=== PATIENT | male | born 1995 | race African-American/Black ===

== ENCOUNTER 2021-11-23 23:13 | Emergency (ER) | payer MEDICAID ==
[~2021-11-23] VITALS: Ht 175.3 cm; Wt 59.0 kg
[2021-11-24 01:42] VITALS: BP 122/71
[2021-11-24] MEDS ORDERED: KETOROLAC 30MG/ML VIAL IM ONE (04:15)
[2021-11-24] MEDS ORDERED: KETOROLAC 30MG/ML VIAL IM NR (04:30)
[2021-11-24 04:57] LABS: CLARITY URINE CLOUDY (CLEAR); COLOR URINE YELLOW (YELLOW); PH URINE 5.5 (4.5-8.0); SPECIFIC GRAVITY URINE 1.019 (1.005-1.030)
[2021-11-24 04:58] LABS: KETONES URINE NEGATIVE (NEGATIVE); PROTEIN URINE 1+ (NEGATIVE)
[2021-11-24 04:59] LABS: LEUKOCYTE ESTERASE URINE 3+ (NEGATIVE); NITRITE URINE POSITIVE (NEGATIVE); OCCULT BLOOD URINE 2+ (NEGATIVE)
[2021-11-24] MEDS ORDERED: IBUP-2029 MT (05:11)
[2021-11-24] MEDS ORDERED: CEPH500C2 MT (05:11)
[2021-11-24] MEDS ORDERED: CEFTRIAXONE SODIUM 1 G/VIAL IM ONE (05:15)
[2021-11-27 07:07] LABS: NEISSERIA GONORRHOEAE NAA Negative (Negative)
== END 2021-11-24 05:50 | disposition home or self-care (01) ==
LOC: ER 23:31
DX: N39.0 Urinary tract infection, site not specified (principal)
CPT/HCPCS: 81003; 87077; 87086; 87186; 87491; 87591; 96372; 99284; J0696; J1885

== ENCOUNTER 2022-02-04 02:03 | Emergency (ER) | payer MEDICAID ==
[~2022-02-04] VITALS: Ht 175.3 cm; Wt 59.0 kg
[~2022-02-04 02:03] MED LIST: CEPH500C2 MT; IBUP-2029 MT
[2022-02-04 02:21] VITALS: BP 115/61
[2022-02-04] MEDS ORDERED: IBUP-2029 PO (03:29)
[2022-02-04] MEDS ORDERED: AMOX-494 PO (03:29)
== END 2022-02-04 03:59 | disposition home or self-care (01) ==
LOC: ER 02:15
DX: J02.9 Acute pharyngitis, unspecified (principal)
CPT/HCPCS: 99283

== ENCOUNTER 2022-05-13 11:56 | Emergency (ER) | payer MEDICAID ==
[~2022-05-13] VITALS: Ht 172.7 cm; Wt 64.0 kg
[~2022-05-13 11:56] MED LIST changes: +AMOX-494 PO; +IBUP-2029 PO
[2022-05-13 12:02] VITALS: BP 123/69
[2022-05-13] MEDS ORDERED: AMOX-494 MT (12:57)
[2022-05-13] MEDS ORDERED: ACET-2708 MT (12:57)
== END 2022-05-13 13:17 | disposition home or self-care (01) ==
LOC: ER 12:04
DX: J02.9 Acute pharyngitis, unspecified (principal); Z79.899 Other long term (current) drug therapy
CPT/HCPCS: 87430; 99283

== ENCOUNTER 2022-08-06 05:01 | Emergency (ER) | payer MEDICAID ==
[~2022-08-06] VITALS: Ht 175.3 cm; Wt 60.0 kg
[~2022-08-06 05:01] MED LIST changes: +ACET-2708 MT; +AMOX-494 MT
[2022-08-06 05:09] VITALS: BP 112/61; O2SAT 96
[2022-08-06] MEDS ORDERED: CEPH500C2 MT (05:50)
[2022-08-06] MEDS ORDERED: IBUP-2029 MT (05:50)
[2022-08-06] MEDS ORDERED: IBUPROFEN 600MG TABLET PO ONE (06:00)
[2022-08-06 06:04] VITALS: PULSE 75; RESP 17; TEMP 98.8
== END 2022-08-06 06:04 | disposition home or self-care (01) ==
LOC: ER 05:01
DX: M79.89 Other specified soft tissue disorders (principal); M54.2 Cervicalgia; Z79.899 Other long term (current) drug therapy
CPT/HCPCS: 99283

== ENCOUNTER 2023-03-09 02:29 | Emergency (ER) | payer MEDICAID ==
[~2023-03-09] VITALS: Ht 177.8 cm; Wt 73.0 kg
[2023-03-09 02:39] VITALS: TEMP 98.3; O2SAT 99
[2023-03-09 03:30] VITALS: BP 93/54; PULSE 84; RESP 16
[2023-03-09] MEDS ORDERED: IBUPROFEN 600MG TABLET PO ONE (03:30)
[2023-03-09] MEDS ORDERED: AMOX-494 MT (03:43)
[2023-03-09] MEDS ORDERED: IBUP-2029 MT (03:43)
== END 2023-03-09 04:07 | disposition home or self-care (01) ==
LOC: ER 02:29
DX: J02.9 Acute pharyngitis, unspecified (principal); Z79.899 Other long term (current) drug therapy; Z20.822 Contact with and (suspected) exposure to COVID-19
CPT/HCPCS: 87426; 87430; 99283

== ENCOUNTER 2023-07-16 23:56 | Emergency (ER) | payer MEDICAID ==
[~2023-07-16] VITALS: Ht 175.3 cm; Wt 61.0 kg
[2023-07-17 00:12] VITALS: BP 118/71; PULSE 81; RESP 16; TEMP 98; O2SAT 98
== END 2023-07-17 03:12 | disposition left against medical advice (07) ==
LOC: ER 23:56
DX: M54.2 Cervicalgia (principal); Z53.21 Procedure and treatment not carried out due to patient leaving prior to being seen by health care provider